=== PATIENT | male | born 1960 | race Caucasian/White ===

== ENCOUNTER 2020-11-18 09:23 | Outpatient (CLI) | payer OTHER ==
[~2020-11-18 09:23] MED LIST: BARIUM SULFATE 340 ML SUSP.RECON***PROCEDURE AREA ONLY**DONT ENTER PO ONE
== END 2020-11-18 23:59 | disposition home or self-care (01) ==
LOC: RAD 09:23
DX: R13.10 Dysphagia, unspecified (principal)
CPT/HCPCS: 74220